=== PATIENT | male | born 1955 | race Hispanic/Latino ===

== ENCOUNTER 2024-08-18 10:43 | Day surgery (SDC) | payer OTHER ==
[2024-08-18] MEDS: Ringers Lactate 1,000 ML IV ONE (11:25)
[2024-08-18] MEDS ORDERED: KETOROLAC 30 MG/ML INJ ONE (13:01)
[2024-08-18] MEDS ORDERED: propofoL 200 MG/20 ML VIAL IV ONE (13:01)
[2024-08-18] MEDS ORDERED: LIDOCAINE 1% MPF 5 ML VIAL ONE (13:01)
[2024-08-18] MEDS ORDERED: MIDAZOLAM HCL 2 MG/2 ML INJ ONE (13:02)
[2024-08-18] MEDS ORDERED: FENTANYL CITR 100 MCG/2 ML ONE (13:02)
[2024-08-18] MEDS: CEFAZOLIN SODIUM 2 GM/VIAL ONE (13:45)
[2024-08-18] MEDS: BUPIVACAINE 0.25% PF 10 ML VIAL ONE (14:00)
[2024-08-18] MEDS ORDERED: LIDOCAINE 2% MPF 5 ML VIAL ONE (14:10)
--- NOTE | 2024-08-18 14:37 | P.BOP ---
Preoperative diagnosis: left knee medial meniscus tear Postoperative diagnosis: same, left knee lateral meniscus tear Primary procedure: left knee arthroscopic partial medial meniscectomy Secondary procedure: left knee arthroscopic partial lateral meniscectomy Food Scientist: NONE,NONE Estimated blood loss: 3 cc Specimen: none Findings: see dictation Anesthesia: General Complications: None Implants: none Fluids & blood products: per anesthesia record Transferred to: Recovery Room Condition: Good
--- NOTE | 2024-08-18 14:41 | P.OP ---
Preoperative diagnosis: Left knee medial meniscus tear Postoperative diagnosis: Same, left knee lateral meniscus tear Primary procedure: left knee arthroscopic partial medial meniscectomy Secondary procedure: left knee arthroscopic partial lateral meniscectomy Anesthesia: General Estimated blood loss: 3 cc Specimen: 9 Findings: see dictation Operative Technique: Indication For Procedure: Obie is a 69-year-old male who presented to my clinic with signs, symptoms, and MRI findings consistent with a left knee medial meniscus tear and some underlying left knee osteoarthritis. Given his pain and mechanical symptoms we elected to proceed with left knee arthroscopic partial medial meniscectomy. I discussed with the patient risks and benefits associated with operative and nonoperative treatment including continued pain from his osteoarthritis. He expressed understanding and elected to proceed with operative treatment. Description Of Procedure: After informed consent was obtained, the patient was identified in the preoperative holding area. The left lower extremity was marked. Patient was brought to the operating room transferred to the operative table in the supine fashion and placed under general anesthesia. The left lower extremity was then prepped and draped in usual sterile fashion. A time-out was initiated. The correct patient and procedure were performed and identified. The patient did receive preoperative prophylactic antibiotics. The left lower extremity was exsanguinated using an Esmarch and the tourniquet was inflated to 300 mmHg. Standard anterior medial and anterior lateral portals were created. The arthroscope was brought in via the anterolateral portal and a diagnostic arthroscopy was performed. 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 The arthroscope was then brought on the both medial and lateral gutters and there were no loose bodies found within the gutters. The arthroscope was first brought into the medial compartment with the patient was noted to have a complex tear of the medial meniscus body. A partial medial meniscectomy was performed using an arthroscopic shaver and meniscal biters to smooth meniscal borders. There were some grade II and III chondromalacia changes of the medial femoral condyle and medial tibial plateau. The arthroscope was then brought into the intercondylar notch where the patient was noted to have an intact ACL and PCL which were stable to probe. The arthroscope was and brought of the lateral compartment where the patient was noted to have some degenerative fraying and small tear of the lateral meniscus body. A partial lateral meniscectomy was performed using an arthroscopic shaver to smooth meniscal borders. Patient had no significant chondromalacia changes of the lateral femoral condyle. Arthroscopic instruments were then removed without complica tion. Wounds were then irrigated thoroughly with normal saline. Portals were approximated using a 3-0 Monocryl. Sterile dressings were applied. The patient was awakened and transferred to PACU in stable condition. Postoperative Plan: The patient will be weightbearing as tolerated on the left lower extremity. He will follow-up in clinic 1 week for wound check and dressing change. We will follow the post meniscectomy protocol 2 weeks postoperatively. Complications: None Implants: None Fluids & blood products: Per anesthesia record Transferred to: Recovery Room Condition: Good
[2024-08-18 15:29] VITALS: BP 145/90; TEMP 97.6; O2SAT 97
[2024-08-18] MEDS: HYDROCODONE/APAP 5/325 MG TAB ONE (15:41)
== END 2024-08-18 15:58 | disposition home or self-care (01) ==
LOC: OR 10:43
PROVIDERS: ATTEND Orthopaedic Surgery Sports Medicine
PROC: 0SBD4ZZ Excision of Left Knee Joint, Percutaneous Endoscopic Approach (ICD-10-PCS; 2024-08-18)
PROC: 0SBD4ZZ Excision of Left Knee Joint, Percutaneous Endoscopic Approach (ICD-10-PCS; principal; 2024-08-18 13:00)
DX: S83.249A Other tear of medial meniscus, current injury, unspecified knee, initial encounter (principal)
CPT/HCPCS: 29880; J2704; J2003 ×2; J2250; J3010; J7120